=== PATIENT | male | born 1980 | race Caucasian/White ===

== ENCOUNTER 2018-03-10 01:35 | Emergency (ER) | payer MEDICAID ==
[2018-03-10] MEDS ORDERED: Lidocaine 2% JELLY* 6 ML JELLY TOPICAL ONE ×2 (02:07)
[2018-03-10 02:33] LABS: ABS Basophils 0.1 10^3/ul (0-0.2); ABS Eosinophils 0.1 10^3/ul (0-0.6); ABS Lymphocytes 2.5 10^3/ul (1.0-4.8); ABS Monocytes 0.7 10^3/ul (0-0.8); ABS Neutrophils 6.5 10^3/ul (1.5-7.7); ABS Nucleated RBC 0 10^3/ul; Eosinophil % 0.8 % (0-6); Hematocrit 39 % (42-52); Hemoglobin 13.2 g/dl (14.0-18.0); Lymphocyte % 25.7 % (25-47); Mean Corpuscular HGB Conc 34 g/dl (31-36); Mean Corpuscular Hemoglobin 29 pg (27-31); Mean Corpuscular Volume 85 fL (80-94); Mean Platelet Volume 8.1 um3 (7.4-10.4); Nucleated Red Blood Cells % 0; Platelet Count 184 10^3/ul (150-450); Red Blood Count 4.55 10^6/ul (4.0-5.4); Red Cell Distribution Width 14 % (10.5-15); White Blood Count 9.9 10^3/ul (3.5-10.8)
[2018-03-10] MEDS ORDERED: Amoxicillin/Clavulanate TAB* 875 MG PO ONE ×2 (02:38)
[2018-03-10 02:40] VITALS: BP 119/81
[2018-03-10 02:41] LABS: INR 1.02 (0.77-1.02)
--- NOTE | 2018-03-10 03:06 | ED ---
Anshul Lebron Rebecca, scribed for Martha Jimenez MD on 03/10/18 at 0209 . Throat Pain/Nasal Congestion - HPI Summary HPI Summary: Pt is a 37 y/o M who presents to ED c/o epistaxis. Sx began at 1500 yesterday and has been intermittent since onset, with this episode since 2029. Sx aggravated and alleviated by nothing. At this time, he denies any pain. On February 11, he had a septoplasty and turbinate reduction, done by Dr. Johnson in [place]. 2 weeks after the surgery, he had one epsiode of epistaxis from the right nostril which was packed. The packing was removed the following day and he has not had bleeding until his current bout of symptoms. - History of Current Complaint Chief Complaint: EDEpistaxis Time Seen by Provider: 03/10/18 01:58 Hx Obtained From: Patient Onset/Duration: Lasting Hours, Still Present Associated Signs And Symptoms: Positive: Negative Cough: None Related History: Prior ENT Surgery - Septoplasty and turbinate reduction - Allergies/Home Medications Home Medications: Home Medications Gabapentin [Neurontin] 300 mg PO DAILY 03/10/18 [History Confirmed 03/10/18] Sertraline HCl [Zoloft] 100 mg PO DAILY 03/10/18 [History Confirmed 03/10/18] Venlafaxine HCl [Venlafaxine HCl ER] 75 mg PO DAILY 03/10/18 [History Confirmed 03/10/18] clonazePAM [Clonazepam] 1 mg PO BID 03/10/18 [History Confirmed 03/10/18] lamoTRIgine [Lamotrigine] 200 mg PO DAILY 03/10/18 [History Confirmed 03/10/18] PMH/Surg Hx/FS Hx/Imm Hx Endocrine/Hematology History: Denies: Hx Diabetes Cardiovascular History: Denies: Hx Hypertension Respiratory History: Reports: Hx Sleep Apnea Infectious Disease History: No Infectious Disease History: Denies: Traveled Outside the [place] in Last 30 Days - Family History Known Family History: Positive: Hypertension, Diabetes - Social History Alcohol Use: None Substance Use Type: Reports: None Smoking Status (MU): Never Smoked Tobacco Review of Systems Negative: Fever Positive: Epistaxis All Other Systems Reviewed And Are Negative: Yes Physical Exam - Summary Physical Exam Summary: VITAL SIGNS: Reviewed. GENERAL: ~Patient is a well-developed and nourished male who is lying comfortable in the stretcher. Patient is not in any acute respiratory distress. HEAD AND FACE: Severe bleeding from the left nostril and there is blood in the oropharynx. No signs of trauma. No ecchymosis, hematomas or skull depressions. No sinus tenderness. EYES: PERRLA, EOMI x 2, No injected conjunctiva, no nystagmus. EARS: Hearing grossly intact. Ear canals and tympanic membranes are within normal limits. MOUTH: Oropharynx within normal limits. NECK: Supple, trachea is midline, no adenopathy, no JVD, no carotid bruit, no c- spine tenderness, neck with full ROM. CHEST: Symmetric, no tenderness at palpation LUNGS: Clear to auscultation bilaterally. No wheezing or crackles. CVS: Regular rate and rhythm, S1 and S2 present, no murmurs or gallops appreciated. EXTREMITIES: FROM in all major joints, no edema, no cyanosis or clubbing. NEURO: Alert and oriented x 3. No acute neurological deficits. Speech is normal and follows commands. SKIN: Dry and warm Triage Information Reviewed: Yes Vital Signs On Initial Exam: Initial Vitals Temp Pulse Resp BP Pulse Ox 97.7 F 118 18 125/92 96 03/10/18 01:42 03/10/18 01:42 03/10/18 01:42 03/10/18 01:42 03/10/18 01:42 Vital Signs Reviewed: Yes Procedures - Procedure Summary Procedure Summary: Nasal packing - Rhino rockets were placed in both nostrils and good hemostasis was achieved. Diagnostics - Vital Signs Vital Signs Temp Pulse Resp BP Pulse Ox 03/10/18 01:42 97.7 F 118 18 125/92 96 - Laboratory Result Diagrams: 03/10/18 02:24 Lab Statement: Any lab studies that have been ordered have been reviewed, and results considered in the medical decision making process. Re-Evaluation - Re-Evaluation First Eval Re-Evaluation Time: 02:25 Comment: Rhino rockets placed - see procedure note. Second Eval Re-Evaluation Time: 02:37 Change: Improved Comment: Bleeding is resolved. EENT Course/Dx - Course Assessment/Plan: Pt is a 37 y/o M who presents to ED c/o intermittent epistaxis since 1500 yesterday, this episode beginning at 2030. On February 11, he had a septoplasty and turbinate reduction, done by Dr. Johnson in [place]. 2 weeks after the surgery, he had one epsiode of epistaxis from the right nostril which was packed. The packing was removed the following day and he has not had bleeding until his current bout of symptoms. In the ED course, pt had the nose packed with rhino rockets in both nostrils. Good hemostasis was achieved. He received Augmentin. Pt will be D/C to home with Dx of epistaxis with Rx for Augmentin. He understands and agrees. - Diagnoses Provider Diagnoses: Epistaxis Discharge - Sign-Out/Discharge Documenting (check all that apply): Discharge/Admit/Transfer - Discharge - Discharge Plan Condition: Stable Disposition: HOME Prescriptions: Amoxicillin/Clavulanate TAB* [Augmentin TAB 875*] 875 mg PO BID #14 tab Patient Education Materials: Nosebleed (ED) Referrals: [facility] [place] [facility]IAN REFERRAL [Outside] - 3 Days Stefano Johnson MD [Medical Doctor] - 03/11/18 Additional Instructions: Follow up with your ENT this Saturday. RETURN TO ED FOR ANY NEW OR WORSENING SYMPTOMS. The documentation as recorded by the Anshul hobbs Rebecca accurately reflects the service I personally performed and the decisions made by me, Martha Jimenez MD.
== END 2018-03-10 02:52 | disposition home or self-care (01) ==
LOC: ED 01:35
DX: R04.0 Epistaxis (principal); G47.30 Sleep apnea, unspecified
CPT/HCPCS: 30901; 36415; 85025; 85610; 85730; 86850; 86900; 86901; 99282; A9270-GY